=== PATIENT | female | born 1970 | race African-American/Black ===

== ENCOUNTER 2021-09-30 06:46 | Emergency (ER) | payer SELFPAY ==
[2021-09-30] MEDS ORDERED: Ketorolac 30 MG/ML SDV IM ONE (07:54)
== END 2021-09-30 08:17 | disposition home or self-care (01) ==
LOC: JP.ED 06:46
DX: S63.632A Sprain of interphalangeal joint of right middle finger, initial encounter (principal); X58.XXXA Exposure to other specified factors, initial encounter
CPT/HCPCS: 73140; 96372; 99283; J1885